=== PATIENT | female | born 1935 | race African-American/Black ===

== ENCOUNTER 2016-12-23 13:11 | Emergency (ER) | payer MEDICARE | END 2016-12-23 16:00 | disposition home or self-care (01) | LOC: D.ER 13:11 | DX: M79.601 Pain in right arm (principal); I10 Essential (primary) hypertension; E11.9 Type 2 diabetes mellitus without complications ==

== ENCOUNTER 2017-01-29 10:51 | Emergency (ER) | payer MEDICARE | END 2017-01-29 13:16 | disposition home or self-care (01) | LOC: D.ER 10:51 | DX: L03.211 Cellulitis of face (principal); E11.9 Type 2 diabetes mellitus without complications; I10 Essential (primary) hypertension ==

== ENCOUNTER 2017-07-23 13:30 | Emergency (ER) | payer MEDICARE | END 2017-07-23 18:22 | disposition home or self-care (01) | LOC: D.ER 13:30 | DX: S76.011A Strain of muscle, fascia and tendon of right hip, initial encounter (principal); X58.XXXA Exposure to other specified factors, initial encounter; Y93.89 Activity, other specified; Y92.89 Other specified places as the place of occurrence of the external cause ==